=== PATIENT | female | born 1960 | race Caucasian/White ===

== ENCOUNTER → 2017-01-17 | Outpatient (CLI) | payer BC ==
[~2017-01-17] MED LIST: ACID REFLUX; AMOXICILLIN 50500 MG PO; AUGMENTIN 875 M1 TAB PO; BLACK COHOSH540 MG PO; CALCIUM 600 + V1 TA1 PO; CLARITIN 1010 MG/TAB PO; ESTRASORB; FLEXERIL10 MG PO; L-LYSINE1000 MG PO; LEVOTHYROXINE0.1 MG PO; LORATADINE10 MG PO; LORTAB 5/500 501 TAB PO; MELATONIN3 M1 PO; MVI; OMEGA-3 FISH1200 MG PO; THEANINE; VITAMIN C PUR1000 MG PO; [UNRECOGNIZED DRUG - OTHER]
== END ==
LOC: MC.RAD 08:36
DX: Z12.31 Encounter for screening mammogram for malignant neoplasm of breast (principal)

== ENCOUNTER → 2018-02-02 | Outpatient (CLI) | payer BC | LOC: MC.RAD 01-27 11:40 | DX: Z12.31 Encounter for screening mammogram for malignant neoplasm of breast (principal); Z88.1 Allergy status to other antibiotic agents; Z88.5 Allergy status to narcotic agent; Z88.2 Allergy status to sulfonamides; Z88.8 Allergy status to other drugs, medicaments and biological substances ==

== ENCOUNTER 2019-01-18 19:03 | Emergency (ER) | payer BC ==
[~2019-01-18] VITALS: Ht 162.6 cm; Wt 52.3 kg
[2019-01-18 19:10] VITALS: BP 133/94; TEMP 97.9
[2019-01-18 19:26] LABS: COLLECTION METHOD CLEAN CATCH
[2019-01-18 19:35] LABS: PH 8 (5-8); SQUAMOUS EPITHELIAL 0-2 /hpf; URINE APPEARANCE Clear; URINE BACTERIA None Seen /hpf; URINE BILIRUBIN Negative (NEGATIVE); URINE BLOOD 2+ (NEGATIVE); URINE COLOR Amber; URINE GLUCOSE Negative (NEGATIVE); URINE KETONE Negative (NEGATIVE); URINE LEUKOCYTE ESTERASE 2+ (NEGATIVE); URINE NITRATE Positive (NEGATIVE); URINE PROTEIN(semi-quant) Negative (NEGATIVE); URINE RBC 0-2 /hpf; URINE UROBILINOGEN >=4.0 mg/dL (NEGATIVE)
[2019-01-18 19:55] LABS: BASO % 0.4 % (0.0-2.0); EOS # 0.1 (0.0-0.7); EOS % 1.1 % (0-4.0); GRAN # 3.7 (1.4-6.5); GRAN % 52.3 % (42.2-75.2); HEMOGLOBIN 13.8 g/dl (12.5-16.0); LYMPH # 2.7 (1.2-3.4); LYMPH % 37.8 % (20.0-51.0); MEAN CELL VOLUME 89 fl (80.0-100.0); MEAN CORPUSCULAR HEMOGLOBIN 30 pg (27.0-31.0); MEAN CORPUSCULAR HGB CONC 34 g/dl (33.0-37.0); MEAN PLATELET VOLUME 9.4 fl (7.4-10.4); MONO # 0.6 (0.1-0.6); MONO % 8.1 % (1.7-9.3); PLATELET COUNT 187 K/mm3 (130-400); RED BLOOD COUNT 4.62 M/mm3 (4.10-5.30); REDCELL DISTRIBUTION WIDTH-CV 13.1 % (11.5-14.5)
[2019-01-18 20:04] LABS: ALANINE AMINOTRANSFERASE 64 U/L (9-52); ALBUMIN 4.2 gm/dL (3.5-5.0); ALKALINE PHOSPHATASE 69 U/L (50-136); ANION GAP 8 mmol/L (7-16); AST,SGOT 43 U/L (15-37); BILIRUBIN,TOTAL 0.4 mg/dL (0.0-1.0); BLOOD UREA NITROGEN 14 mg/dL (7-17); C-REACTIVE PROTEIN < 0.5 mg/dL (0.0-0.9); CALCIUM 9.3 mg/dL (8.4-10.2); CARBON DIOXIDE 24 mmol/L (22-30); CHLORIDE 103 mmol/L (98-107); CREATININE, serum 0.64 mg/dL (0.52-1.25); GLUCOSE 98 mg/dL (74-106); POTASSIUM 4.1 mmol/L (3.4-5.0); SODIUM 134 mmol/L (137-145); TOTAL PROTEIN 7.4 gm/dL (6.4-8.2)
[2019-01-18] MEDS ORDERED: [UNRECOGNIZED DRUG - OTHER] PO (20:33)
[2019-01-18] MEDS ORDERED: MACROBID 1100 MG/CAP PO (20:34)
[2019-01-18] MEDS ORDERED: ZOFRAN ODT4 MG PO ×2 (20:54→21:08)
[2019-01-18] MEDS ORDERED: NORCO 325 MG-51 TAB PO (20:54)
[2019-01-18] MEDS ORDERED: ULTRAM 50MG TAB50 MG PO (21:08)
[2019-01-18 21:35] VITALS: PULSE 72
== END 2019-01-18 21:35 | disposition home or self-care (01) ==
LOC: COL.ER 19:03
PROVIDERS: Emergency Medicine
DX: N39.0 Urinary tract infection, site not specified (principal); N32.89 Other specified disorders of bladder; Z90.710 Acquired absence of both cervix and uterus; Z88.5 Allergy status to narcotic agent
CPT/HCPCS: J1885; J2405; J3010; J7030

== ENCOUNTER → 2019-02-24 | Outpatient (CLI) | payer BC ==
[~2019-02-24] MED LIST changes: +MACROBID 1100 MG/CAP PO; +NORCO 325 MG-51 TAB PO; +ULTRAM 50MG TAB50 MG PO; +ZOFRAN ODT4 MG PO; +[UNRECOGNIZED DRUG - OTHER] PO
== END ==
LOC: MC.RAD 07:57
DX: Z00.00 Encounter for general adult medical examination without abnormal findings (principal); Z12.31 Encounter for screening mammogram for malignant neoplasm of breast; E03.9 Hypothyroidism, unspecified; K59.01 Slow transit constipation; Z13.6 Encounter for screening for cardiovascular disorders; Z13.1 Encounter for screening for diabetes mellitus

== ENCOUNTER 2020-04-01 18:48 | Emergency (ER) | payer BC ==
[~2020-04-01] VITALS: Ht 162.6 cm; Wt 52.3 kg
[2020-04-01 19:19] LABS: COLLECTION METHOD CLEAN CATCH
[2020-04-01 19:35] LABS: MUCOUS Present /lpf; PH 5 (5-8); SQUAMOUS EPITHELIAL 0-2 /hpf; URINE APPEARANCE Clear; URINE BACTERIA None Seen /hpf; URINE BILIRUBIN Negative (NEGATIVE); URINE BLOOD Negative (NEGATIVE); URINE COLOR Yellow; URINE GLUCOSE Negative (NEGATIVE); URINE KETONE Negative (NEGATIVE); URINE LEUKOCYTE ESTERASE 2+ (NEGATIVE); URINE NITRATE Negative (NEGATIVE); URINE PROTEIN(semi-quant) Negative (NEGATIVE); URINE UROBILINOGEN Negative (NEGATIVE)
[2020-04-01] MEDS ORDERED: MACROBID 1100 MG/CAP PO (20:16)
[2020-04-01] MEDS ORDERED: ULTRAM ER100 MG PO (20:59)
[2020-04-01] MEDS ORDERED: PYRIDIUM200 M1 PO (20:59)
[2020-04-01 21:17] VITALS: BP 114/85; PULSE 68; TEMP 97.5
== END 2020-04-01 21:17 | disposition home or self-care (01) ==
LOC: COL.ER 18:48
PROVIDERS: Emergency Medicine
DX: N39.0 Urinary tract infection, site not specified (principal)
CPT/HCPCS: J2405; J3010; J7030

== ENCOUNTER → 2020-04-10 | Outpatient (CLI) | payer BC ==
[~2020-04-10] MED LIST changes: +PYRIDIUM200 M1 PO; +ULTRAM ER100 MG PO
== END ==
LOC: MC.RAD 10:30
DX: Z12.31 Encounter for screening mammogram for malignant neoplasm of breast (principal)

== ENCOUNTER 2020-11-22 07:52 | Emergency (ER) | payer BC ==
[~2020-11-22] VITALS: Ht 162.6 cm; Wt 50.9 kg
[2020-11-22 08:10] VITALS: TEMP 97.7
[2020-11-22 08:17] LABS: COLLECTION METHOD CLEAN CATCH
[2020-11-22 08:45] LABS: MUCOUS Present /lpf; PH 5 (5-8); SQUAMOUS EPITHELIAL 0-2 /hpf; URINE APPEARANCE Cloudy; URINE BACTERIA Occasional /hpf; URINE BILIRUBIN Negative (NEGATIVE); URINE BLOOD 3+ (NEGATIVE); URINE COLOR Amber; URINE GLUCOSE Negative (NEGATIVE); URINE KETONE Negative (NEGATIVE); URINE LEUKOCYTE ESTERASE 1+ (NEGATIVE); URINE NITRATE Positive (NEGATIVE); URINE PROTEIN(semi-quant) 2+ (NEGATIVE); URINE RBC >50 /hpf; URINE UROBILINOGEN >=4.0 mg/dL (NEGATIVE)
[2020-11-22 08:48] LABS: BASO # 0.1 (0.0-0.2); BASO % 0.7 % (0.0-2.0); EOS # 0.1 (0.0-0.7); EOS % 0.5 % (0-4.0); GRAN # 9.6 (1.4-6.5); GRAN % 82.7 % (42.2-75.2); HEMATOCRIT 40.6 % (37.0-47.0); HEMOGLOBIN 13.8 g/dl (12.5-16.0); LYMPH # 1.2 (1.2-3.4); LYMPH % 10.7 % (20.0-51.0); MEAN CELL VOLUME 89 fl (80.0-100.0); MEAN CORPUSCULAR HEMOGLOBIN 30 pg (27.0-31.0); MEAN CORPUSCULAR HGB CONC 34 g/dl (33.0-37.0); MEAN PLATELET VOLUME 9.4 fl (7.4-10.4); MONO # 0.6 (0.1-0.6); MONO % 5.1 % (1.7-9.3); PLATELET COUNT 248 K/mm3 (130-400); RED BLOOD COUNT 4.59 M/mm3 (4.10-5.30); REDCELL DISTRIBUTION WIDTH-CV 13.4 % (11.5-14.5)
[2020-11-22 08:53] LABS: CALCIUM 9.5 mg/dL (8.4-10.2); CREATININE, serum 0.68 (0.52-1.25); POTASSIUM 4.1 mmol/L (3.4-5.0)
[2020-11-22] MEDS ORDERED: ZOFRAN ODT4 MG PO (09:11)
[2020-11-22] MEDS ORDERED: CEFTIN500 MG PO (09:11)
[2020-11-22] MEDS ORDERED: ULTRAM 50MG TAB50 MG PO (09:11)
[2020-11-22 09:40] VITALS: BP 132/74; PULSE 67
== END 2020-11-22 10:05 | disposition home or self-care (01) ==
LOC: COL.ER 07:52
PROVIDERS: Emergency Medicine
DX: N39.0 Urinary tract infection, site not specified (principal); Z88.2 Allergy status to sulfonamides; Z88.6 Allergy status to analgesic agent; Z88.1 Allergy status to other antibiotic agents
CPT/HCPCS: J0696; J1885; J2405; J3010; J7030

== ENCOUNTER → 2021-04-11 | Outpatient (CLI) | payer BC ==
[~2021-04-11] MED LIST changes: +CEFTIN 250250 MG/TAB PO; +CEFTIN500 MG PO
== END ==
LOC: MC.RAD 07:56
DX: Z12.31 Encounter for screening mammogram for malignant neoplasm of breast (principal)

== ENCOUNTER 2021-07-10 23:01 | Emergency (ER) | payer BC ==
[~2021-07-10] VITALS: Ht 162.6 cm; Wt 54.5 kg
[~2021-07-10 23:01] MED LIST changes: -CEFTIN 250250 MG/TAB PO
[2021-07-10 23:32] LABS: COLLECTION METHOD CLEAN CATCH
[2021-07-10 23:37] LABS: MUCOUS Present /lpf; PH 6 (5-8); SQUAMOUS EPITHELIAL 0-2 /hpf; URINE APPEARANCE Clear; URINE BACTERIA None Seen /hpf; URINE BILIRUBIN Negative (NEGATIVE); URINE BLOOD 1+ (NEGATIVE); URINE COLOR Straw; URINE GLUCOSE Negative (NEGATIVE); URINE KETONE Negative (NEGATIVE); URINE LEUKOCYTE ESTERASE 2+ (NEGATIVE); URINE NITRATE Negative (NEGATIVE); URINE PROTEIN(semi-quant) Negative (NEGATIVE); URINE RBC 0-2 /hpf; URINE UROBILINOGEN Negative (NEGATIVE)
[2021-07-11] MEDS ORDERED: CEFTIN 250250 MG/TAB PO (00:11)
[2021-07-11 00:28] VITALS: BP 145/83; PULSE 81; TEMP 98
== END 2021-07-11 00:28 | disposition home or self-care (01) ==
LOC: COL.ER 23:01
PROVIDERS: Nurse Practitioner
DX: N39.0 Urinary tract infection, site not specified (principal); Z88.2 Allergy status to sulfonamides

== ENCOUNTER → 2022-05-03 | Outpatient (CLI) | payer BC ==
[~2022-05-03] MED LIST changes: +CEFTIN 250250 MG/TAB PO
== END ==
LOC: MC.RAD 07:27
DX: Z12.31 Encounter for screening mammogram for malignant neoplasm of breast (principal)

== ENCOUNTER → 2023-12-29 | Outpatient (CLI) | payer BC | LOC: MC.RAD 06:51 → COL.RAD 07:00 | DX: R92.8 Other abnormal and inconclusive findings on diagnostic imaging of breast (principal) ==

== ENCOUNTER 2024-05-16 21:13 | Emergency (ER) | payer BC ==
[~2024-05-16] VITALS: Ht 162.6 cm; Wt 53.2 kg
[2024-05-16 21:17] VITALS: TEMP 97.8
[2024-05-16 21:44] LABS: COLLECTION METHOD CLEAN CATCH
[2024-05-16] MEDS ORDERED: traMADol 50 MG TAB PO ONE (21:45)
[2024-05-16] MEDS ORDERED: AMOXICILLIN 8751 TAB PO (21:57)
[2024-05-16] MEDS ORDERED: ZOFRAN ODT4 MG PO (21:57)
[2024-05-16 21:58] LABS: URINE APPEARANCE Turbid (CLEAR/HAZY); URINE BLOOD Negative (NEGATIVE); URINE COLOR DARK YELLOW (YELLOW); URINE GLUCOSE Negative (NEGATIVE); URINE KETONE Negative (NEGATIVE); URINE NITRATE Negative (NEGATIVE); URINE PROTEIN(semi-quant) 1+ (NEGATIVE)
[2024-05-16] MEDS ORDERED: Home traMADol 50 MG #2 TAB/PACK PO ONE (22:00)
[2024-05-16] MEDS ORDERED: Amoxicillin/Clavulanate K+ 875/125 MG TAB PO ONE (22:00)
[2024-05-16 22:11] VITALS: BP 150/78; PULSE 95
== END 2024-05-16 22:13 | disposition home or self-care (01) ==
LOC: COL.ER 21:13
PROVIDERS: Internal Medicine
DX: N39.0 Urinary tract infection, site not specified (principal); Z88.1 Allergy status to other antibiotic agents; Z88.2 Allergy status to sulfonamides